=== PATIENT | male | born 1965 | race Caucasian/White ===

== ENCOUNTER 2020-09-13 21:00 | Emergency (ER) | payer BC ==
[2020-09-13] MEDS ORDERED: Oxymetazoline 0.05% Nasal Spray 30 ML Bottle NAS ONE ×2 (21:37→21:43)
[2020-09-13] MEDS ORDERED: Phenylephrine 0.5% Nasal Spray 15 ML Bot NASRT ONE (21:39)
--- NOTE | 2020-09-13 21:40 | EDM.PDOC ---
ED HPI GENERAL MEDICAL PROBLEM - General Chief Complaint: ENT Problem Stated Complaint: NOSE BLEEDING Time Seen by Provider: 09/13/20 21:31 Source of Information: Reports: Patient, Old Records History Limitations: Reports: No Limitations - History of Present Illness INITIAL COMMENTS - FREE TEXT/NARRATIVE: This is a very pleasant 54-year-old male with a past medical history of hy pertension presenting with a nosebleed. He was diagnosed with COVID-19 infection on 09/07/2020. At that time he had a scant amount of bleeding from the right nostril. Over the past 2 to 3 days, this bleeding has increased significantly. He has a history of several prior sinus surgeries but does not have chronic problems with nosebleeds. Denies any history of a bleeding disorder. Denies hemoptysis, hematemesis, hematuria, or bloody stools. He has been trying to apply pressure but has not tried any nasal vasoconstrictor medications before arrival. Past medical history: Reviewed, no additional pertinent history. Surgical history: Reviewed in system, no additional pertinent history. Social history: Reviewed in system, no additional pertinent history. Family history: Reviewed in system, no additional pertinent history. PHYSICAL EXAM Vital signs reviewed. Nursing notes reviewed. Constitutional: Awake, alert, non-distressed. Head: Normocephalic, atraumatic. Eyes: EOMI, conjunctiva normal, no discharge, no scleral icterus. Ears, Nose, Throat: External ears and nose normal, moist oral mucosa. There is a steady stream of bright red blood from the right nostril, I am unable to visualize a bleeding vessel. Dried blood to both nostrils. Cardiovascular: 2+ radial pulse, capillary refill less than 2 seconds. Pulmonary: normal work of breathing, no accessory muscle use. Abdomen/GI: Soft, nontender, nondistended, no guarding or rigidity, no masses. Musculoskeletal: No deformities. Integumentary: Appropriate color for ethnicity, warm, dry, no pallor or jaundice, no rash. Neurologic: Alert, answering questions appropriately, normal speech, no facial droop, moving all extremities well. Psychiatric: Appropriate mood and affect, normal thought process. This patient was seen and evaluated during the 2019 SARS-CoV-2 novel coronavirus pandemic period. Community viral transmission is ongoing at time of this encounter and the emergency department is operating under pandemic response procedures. - Related Data Allergies Allergy/AdvReac Type Severity Reaction Status Date / Time No Known Allergies Allergy Verified 09/13/20 21:16 Home Meds: Home Meds Losartan [Cozaar] 100 mg PO DAILY 06/29/15 [History] Potassium Chloride 20 meq PO DAILY 04/28/18 [History] Amoxicillin/Potassium Clav [Augmentin 875-125 Tablet] 1 each PO BID 3 Days #6 tablet 09/13/20 [Rx] Doxazosin [Doxazosin Mesylate] 2 mg PO DAILY 09/13/20 [History] Past Medical History HEENT History: Reports: Other (See Below) Other HEENT History: wears eyeglasses Cardiovascular History: Reports: Hypertension Respiratory History: Reports: None Gastrointestinal History: Reports: None Genitourinary History: Reports: Renal Calculus Musculoskeletal History: Reports: None Neurological History: Reports: None Psychiatric History: Reports: None Endocrine/Metabolic History: Reports: None Other Endocrine/Metabolic History: working out with doctor for elevated blood sugar Insulin Pump Model and 911 Emergency Dispatcher: None Hematologic History: Reports: None Immunologic History: Reports: None Oncologic (Cancer) History: Reports: None Dermatologic History: Reports: None - Infectious Disease History Infectious Disease History: Reports: None - Past Surgical History Head Surgeries/Procedures: Reports: None HEENT Surgical History: Reports: Adenoidectomy, Naso-Sinus Surgery, Tonsillectomy Cardiovascular Surgical History: Reports: None Male Surgical History: Reports: Kidney Stone Extraction Endocrine Surgical History: Reports: None Musculoskeletal Surgical History: Reports: Other (See Below) Other Musculoskeletal Surgeries/Procedures:: surgery for torn miniscus Social & Family History - Family History Family Medical History: No Pertinent Family History - Tobacco Use Tobacco Use Status *Q: Never Tobacco User - Caffeine Use Caffeine Use: Reports: None - Recreational Drug Use Recreational Drug Use: No ED ROS ENT - Review of Systems Review Of Systems: See Below ED EXAM, ENT - Physical Exam Exam: See Below ED ENT PROCEDURES - Epistaxis Procedure Indication: Epistaxis Recent anticoagulants/antiplatlets: No Uncontrolled HTN: No Recent septal/nasal surgery: No Site of bleeding: Right Nare Clearing of clots: Patient Blew Nose Topical Meds: Phenylephrine Ice pack to area: No Anterior Packing: Inflatable Nasal Tampon Complications: No (Anterior Rhino Rocket soaked with TXA then inserted into right nare, with successful hemostasis.) Course - Vital Signs Text/Narrative:: 54-year-old male with epistaxis. Patient hemodynamically stable, afebrile, well-appearing, looks nontoxic. Differential diagnosis includes but is not limited to: Uncomplicated epistaxis, posterior epistaxis, coagulopathy, digital trauma, etc. 9:42 PM: We will plan to check CBC, INR, metabolic panel, and we will instill nasal phenylephrine and reapply the nasal clamp. I cannot visualize a discrete bleeding blood vessel at this time. 10:12 PM: Cell lines are normal. INR is normal. Metabolic panel shows mild hypokalemia 3.4, mild hypocalcemia at 8.4, otherwise reassuring. Oxymetazoline has been instilled and the patient has a clamp in place. We will reevaluate in a few minutes to see if he is hemostatic. 10:45 PM: Patient continued to have epistaxis after Afrin and clamping so I placed a rapid Rhino balloon soaked in TXA. He seems to be hemostatic now. His blood work is reassuring. We are going to discharge him home and have him return to the ED or follow-up with an ENT clinic in 72 hours for reevaluation and to have the balloon removed. I sent a 3-day course of Augmentin to the pharmacy for prophylaxis. Plan: Patient is stable to discharge home with outpatient ENT clinic follow-up. Strict emergency department return precautions were provided, patient indicated understanding. All questions were answered prior to departure. Discharged in good condition. Last Recorded V/S: Last Vital Signs Temp 35.9 C L 09/13/20 21:10 Pulse 94 09/13/20 21:10 Resp 18 09/13/20 21:10 BP 144/83 H 09/13/20 21:10 Pulse Ox 98 09/13/20 21:10 - Orders/Labs/Meds Labs: Laboratory Tests 09/13/20 09/13/20 09/13/20 Range/Units 21:45 21:45 21:45 WBC 7.49 (4.0-11.0) K/uL RBC 5.34 (4.50-5.90) M/uL Hgb 15.9 (13.0-17.0) g/dL Hct 46.8 (38.0-50.0) % MCV 87.6 (80.0-98.0) fL MCH 29.8 (27.0-32.0) pg MCHC 34.0 (31.0-37.0) g/dL RDW Std Deviation 41.4 (28.0-62.0) fl RDW Coeff of Rachel 13 (11.0-15.0) % Plt Count 189 (150-400) K/uL MPV 10.20 (7.40-12.00) fL Neut % (Auto) 47.0 L (48.0-80.0) % Lymph % (Auto) 37.9 (16.0-40.0) % [place] % (Auto) 12.8 (0.0-15.0) % Eos % (Auto) 1.9 (0.0-7.0) % Baso % (Auto) 0.4 (0.0-1.5) % Neut # (Auto) 3.5 (1.4-5.7) K/uL Lymph # (Auto) 2.8 H (0.6-2.4) K/uL [place] # (Auto) 1.0 H (0.0-0.8) K/uL Eos # (Auto) 0.1 (0.0-0.7) K/uL Baso # (Auto) 0.0 (0.0-0.1) K/uL Nucleated RBC % 0.0 /100WBC Nucleated RBCs # 0 K/uL INR 1.00 Sodium 144 (136-148) mmol/L Potassium 3.4 L (3.5-5.1) mmol/L Chloride 105 (98-107) mmol/L Carbon Dioxide 27.9 (21.0-32.0) mmol/L BUN 14 (7.0-18.0) mg/dL Creatinine 1.0 (0.8-1.3) mg/dL Est Cr Clr Drug Dosing 93.77 mL/min Estimated GFR (MDRD) > 60.0 ml/min Glucose 103 (74-106) mg/dL Calcium 8.4 L (8.5-10.1) mg/dL Meds: Medications Discontinued Medications Generic Name Dose Route Start Last Admin Trade Name Velasquezq PRN Reason Stop Dose Admin Oxymetazoline HCl 2 ml 09/13/20 21:37 09/13/20 21:40 Nasal Decongestant [place] HARPREET 09/13/20 21:38 Not Given ONETIME ONE Oxymetazoline HCl 2 ml 09/13/20 21:43 09/13/20 21:59 Nasal Decongestant [place] HARPREET 09/13/20 21:44 Not Given ONETIME ONE Oxymetazoline HCl 3 ml 09/13/20 21:56 09/13/20 22:07 Afrin Original 0.05% Nasal [place] HARPREET 09/13/20 21:57 Not Given ONETIME ONE Oxymetazoline HCl 15 ml 09/13/20 21:57 09/13/20 21:59 Afrin Original 0.05% Nasal [place] HARPREET 09/13/20 21:58 3 spray ONETIME ONE Administration Phenylephrine HCl 2 ml 09/13/20 21:39 09/13/20 21:58 Samy-Synephrine 0.5% Regular Nasal [place] NASRT 09/13/20 21:40 Not Given ONETIME ONE Tranexamic Acid 1,000 mg 09/13/20 22:28 09/13/20 22:34 Cyklokapron TOP 09/13/20 22:38 1,000 mg ONETIME ONE Administration Departure - Departure Time of Disposition: 22:46 Disposition: Home, Self-Care 01 Condition: Good Clinical Impression: Epistaxis - Discharge Information *PRESCRIPTION DRUG MONITORING PROGRAM REVIEWED*: Not Applicable *COPY OF PRESCRIPTION DRUG MONITORING REPORT IN PATIENT KOFI: Not Applicable Prescriptions: Amoxicillin/Potassium Clav [Augmentin 875-125 Tablet] 1 each PO BID 3 Days #6 tablet Instructions: Nosebleed, Adult Forms: ED Department Discharge Additional Instructions: Please follow-up with your ENT doctor or the ENT clinic at [facility] in [place] in the next few days for reevaluation. I recommend that you follow-up with either an ENT clinic or the emergency department in 72 hours to have your nosebleed reevaluated and to have the balloon removed. I prescribed some antibiotics to the pharmacy, finish these as directed. You may gently spray some saline to help keep the balloon in your nose moist once or twice daily but do not aggressively irrigate the balloon as this may cause bleeding to resume. Please return the emergency department immediately if your symptoms worsen or if you feel worse. Thank you for choosing the [facility] emergency department in [place] for your medical needs today. It was a pleasure caring for you. The following information is given to patients seen in the emergency department who are being discharged. This information is to outline your options for follow-up care. We provide all patients seen in our emergency department with a follow-up referral. The need for follow-up, as well as the timing and circumstances, are variable depending upon the specifics of your emergency department visit. If you don't have a primary care physician on staff, we will provide you with a referral. We always advise you to contact your personal physician following an emergency department visit to inform them of the circumstance of the visit and for follow-up with them and/or the need for any referrals to a consulting specialist. The emergency department will also refer you to a specialist when appropriate. This referral assures that you have the opportunity for follow-up care with a specialist. All of these measure are taken in an effort to provide you with optimal care, which includes your follow-up. Under all circumstances we always encourage you to contact your private physician who remains a resource for coordinating your care. When calling for follow-up care, please make the office aware that this follow-up is from your recent emergency room visit. If for any reason you are refused follow-up, please contact the [facility] Emergency Department at and asked to speak to the emergency department charge nurse. If you do not have a primary care physician that is caring for you, you can contact these clinics below to set up an appointment to establish care: Whitley Andres [facility] - Primary Care [address] [place] [id number] [address] Sepsis Event Note (ED) - Evaluation Sepsis Screening Result: No Definite Risk - Focused Exam Vital Signs: Vital Signs Temp Pulse Resp BP Pulse Ox 09/13/20 21:10 35.9 C L 94 18 144/83 H 98
[2020-09-13] MEDS ORDERED: Oxymetazoline 0.05% Nasal Spray 15 ML Bottle NAS ONE ×2 (21:56→21:57)
[2020-09-13 22:08] LABS: BLOOD UREA NITROGEN,BUN 14 mg/dL (7.0-18.0); CARBON DIOXIDE,CO2 27.9 mmol/L (21.0-32.0); CHLORIDE,CL 105 mmol/L (98-107); GLUCOSE RANDOM 103 mg/dL (74-106); POTASSIUM,K 3.4 mmol/L (3.5-5.1); SODIUM,NA 144 mmol/L (136-148)
[2020-09-13 23:02] VITALS: BP 138/89; PULSE 81
== END 2020-09-13 22:55 | disposition home or self-care (01) ==
LOC: MW.ED 21:00
DX: R04.0 Epistaxis (principal); I10 Essential (primary) hypertension; Z79.899 Other long term (current) drug therapy
CPT/HCPCS: 30901; 30903; 36415; 80048; 85025; 85610; 99282; 99283-25

== ENCOUNTER 2020-10-18 17:59 | Emergency (ER) | payer BC ==
--- NOTE | 2020-10-18 18:30 | EDM.PDOC ---
ED HPI GENERAL MEDICAL PROBLEM - General Chief Complaint: Lower Extremity Injury/Pain Stated Complaint: TOE INJURT RT FOOT Time Seen by Provider: 10/18/20 18:02 Source of Information: Reports: Patient History Limitations: Reports: No Limitations - History of Present Illness INITIAL COMMENTS - FREE TEXT/NARRATIVE: HISTORY AND PHYSICAL: History of present illness: Patient is a 54-year-old male who presents to the emergency room with complaints of bleeding at the base of his left third toenail. He states he was running up the stairs and attempted to skip a step when his foot hit the lip of the step. He noticed some bleeding at the distal aspect of the left third toe which appears to be coming from the base of the nail. The nail remains intact and there is no open skin or lacerations. He denies any other extremity involvement. Offers no systemic complaints. Tetanus is up-to-date. Review of systems: As per history of present illness and below otherwise all systems reviewed and negative. Past medical history: As per history of present illness and as reviewed below otherwise noncontributory. Surgical history: As per history of present illness and as reviewed below otherwise noncontributory. Social history: See social history for further information Family history: As per history of present illness and as reviewed below otherwise noncontributory. Physical exam: General: Well developed and well nourished. Alert and orientated x 3. Nontoxic in appearance and in no acute distress. Vital signs are stable and have been reviewed by me. Nursing notes were reviewed. HEENT: Atraumatic, normocephalic, pupils equal and reactive bilaterally, negative for conjunctival pallor or scleral icterus, mucous membranes moist, trachea midline. No drooling or trismus noted. No meningeal signs. No hot potato voice noted. Lungs: Clear to auscultation bilaterally. No wheezes, rales, or rhonchi. Chest nontender. Normal work of breathing, no accessory muscles used. Heart: S1S2, regular rate and rhythm without overt murmur, gallops, or rubs. No JVD. No peripheral edema Abdomen: Soft, nondistended, nontender. Normoactive bowel sounds. Negative for masses or costovertebral tenderness. Skin: There is a small amount of blood oozing from the cuticle/toenail insertion site. The toenail remains intact and stable. Remaining skin is otherwise intact, warm, dry. No lesions or rashes noted. Hematologic: No petechiae or purpra. Mucosa appropriate color and normal nail bed color and refill. Extremities: Pain to the left distal third toe. He moves all extremities per self without difficulty or deficits, negative for cords or calf pain. Neurovascular unremarkable. Neuro: Awake, alert, oriented. Cranial nerves II through XII unremarkable. Cerebellum unremarkable. Motor and sensory unremarkable throughout. Exam nonfocal. Psychiatric: Mood and affect are appropriate. Normal thought process. Answering questions appropriately. Notes: *This patient was seen and evaluated during the 2019 SARS-CoV-2 novel coronavirus pandemic period. Community viral transmission is ongoing at time of this encounter and the emergency department is operating under pandemic response procedures. The toe was cleansed with chlorhexidine and wound wash. There is nothing that is requiring sutures. X-ray shows no evidence for acute fracture or dislocation. The joint spaces are preserved. Soft tissues appear within normal. Bacitracin nonstick dressing was applied. Patient reports he has crutches and pain medication at home and does not need any dispensed from the emergency room. I have talked with the patient about today's findings, in addition to providing specific details for plan of care. Reassessment at the time of disposition demonstrates that the patient is in no acute distress. The patient is stable for discharge, counseling was provided and we discussed in great detail signs and symptoms that would prompt them to return to the Emergency Department. M edication, follow up and supportive care measures were reviewed and discussed. Voices understanding and is agreeable to plan of care. Denies any further questions or concerns at this time. Diagnostics: Foot X-ray Therapeutics: Wound care, bacitracin Prescription: None Impression: Nailbed injury Plan: 1. X-ray shows no evidence of fracture. Rest, ice and elevate extremity as able. Be none weightbearing as able. 2. You can alternate Tylenol and ibuprofen as needed for pain and fever management. 3. We encourage you to follow up with your primary care provider or Demographic Analyst in the next few days for re-evaluation and further care/management. 4. If your symptoms should worsen, new symptoms develop or any of the signs and symptoms we discussed should arise please return to the emergency room or call 911 (if needed). Definitive disposition and diagnosis as appropriate pending reevaluation and review of above. left 4th toe Pain Score (Numeric/FACES): 2 - Related Data Allergies Allergy/AdvReac Type Severity Reaction Status Date / Time No Known Allergies Allergy Verified 09/13/20 21:16 Home Meds: Home Meds Losartan [Cozaar] 100 mg PO DAILY 06/29/15 [History] Potassium Chloride 20 meq PO DAILY 04/28/18 [History] Doxazosin [Doxazosin Mesylate] 2 mg PO DAILY 09/13/20 [History] Past Medical History HEENT History: Reports: Other (See Below) Other HEENT History: wears eyeglasses Cardiovascular History: Reports: Hypertension Respiratory History: Reports: None Gastrointestinal History: Reports: None Genitourinary History: Reports: Renal Calculus Musculoskeletal History: Reports: None Neurological History: Reports: None Psychiatric History: Reports: None Endocrine/Metabolic History: Reports: None Other Endocrine/Metabolic History: working out with doctor for elevated blood sugar Insulin Pump Model and Financing Analyst: None Hematologic History: Reports: None Immunologic History: Reports: None Oncologic (Cancer) History: Reports: None Dermatologic History: Reports: None - Infectious Disease History Infectious Disease History: Reports: Novel Coronavirus - Past Surgical History Head Surgeries/Procedures: Reports: None HEENT Surgical History: Reports: Adenoidectomy, Naso-Sinus Surgery, Tonsillectomy Cardiovascular Surgical History: Reports: None Male Surgical History: Reports: Kidney Stone Extraction Endocrine Surgical History: Reports: None Musculoskeletal Surgical History: Reports: Other (See Below) Other Musculoskeletal Surgeries/Procedures:: surgery for torn miniscus Social & Family History - Family History Family Medical History: No Pertinent Family History - Tobacco Use Tobacco Use Status *Q: Never Tobacco User - Caffeine Use Caffeine Use: Reports: None - Recreational Drug Use Recreational Drug Use: No Review of Systems - Review of Systems Review Of Systems: Comprehensive ROS is negative, except as noted in HPI. ED EXAM, GENERAL - Physical Exam Exam: See Below (See dictation) Course - Vital Signs Last Recorded V/S: Last Vital Signs Temp 97.6 F 10/18/20 18:14 Pulse 91 10/18/20 18:14 Resp 16 10/18/20 18:14 BP 100/61 10/18/20 18:30 Pulse Ox 96 10/18/20 18:14 - Orders/Labs/Meds Orders: Active Orders 24 hr Category Date Time Status Communication Order [RC] STAT Care 10/18/20 18:30 Active Departure - Departure Time of Disposition: 18:49 Disposition: Home, Self-Care 01 Clinical Impression: Nailbed injury - Discharge Information Instructions: Nail Bed Injury, [id number] Referrals: Kevyn Masters MD [Primary Care Provider] - Forms: ED Department Discharge Additional Instructions: The following information is given to patients seen in the emergency department who are being discharged to home. This information is to outline your options for follow-up care. We provide all patients seen in our emergency department with a follow-up referral. The need for follow-up, as well as the timing and circumstances, are variable depending upon the specifics of your emergency department visit. If you don't have a primary care physician on staff, we will provide you with a referral. We always advise you to contact your personal physician following an emergency department visit to inform them of the circumstance of the visit and for follow-up with them and/or the need for any referrals to a consulting specialist. The emergency department will also refer you to a specialist when appropriate. This referral assures that you have the opportunity for follow-up care with a specialist. All of these measure are taken in an effort to provide you with optimal care, which includes your follow-up. Under all circumstances we always encourage you to contact your private physician who remains a resource for coordinating your care. When calling for follow-up care, please make the office aware that this follow-up is from your recent emergency room visit. If for any reason you are refused follow-up, please contact the [facility] Emergency Department at and asked to speak to the emergency department charge nurse. [facility] Primary [facility] [address] [place] [id number] [address] [address] Thank you for choosing the [facility] emergency department in [place] for your medical needs today. It was a pleasure caring for you. Today you were seen in the emergency department for nailbed injury. 1. X-ray shows no evidence of fracture. Rest, ice and elevate extremity as able. Be none weightbearing as able. 2. You can alternate Tylenol and ibuprofen as needed for pain and fever management. 3. We encourage you to follow up with your primary care provider or Demographic Analyst in the next few days for re-evaluation and further care/management. 4. If your symptoms should worsen, new symptoms develop or any of the signs and symptoms we discussed should arise please return to the emergency room or call 911 (if needed). Sepsis Event Note (ED) - Evaluation Sepsis Screening Result: No Definite Risk - Focused Exam Vital Signs: Vital Signs Temp Pulse Resp BP Pulse Ox 10/18/20 18:30 100/61 10/18/20 18:14 97.6 F 91 16 161/102 H 96 - My Orders Last 24 Hours: My Active Orders 10/18/20 18:30 Communication Order [RC] STAT - Assessment/Plan Last 24 Hours: My Active Orders 10/18/20 18:30 Communication Order [RC] STAT
--- NOTE | 2020-10-18 18:43 | CR ---
HISTORY: Patient with left foot pain and injury. COMPARISON: None. FINDINGS: Three views of the left foot. No evidence for acute fracture or dislocation. The joint spaces are preserved. Soft tissues appear within normal. Dictated by Nati Wright MD @ Oct 18 2020 6:41PM Signed by Dr. Nati Wright @ Oct 18 2020 6:42PM
[2020-10-18 19:26] VITALS: BP 138/95; PULSE 87
== END 2020-10-18 19:15 | disposition home or self-care (01) ==
LOC: MW.ED 17:59
DX: S99.922A Unspecified injury of left foot, initial encounter (principal); I10 Essential (primary) hypertension; Z86.16 Personal history of COVID-19; Z79.899 Other long term (current) drug therapy; W22.8XXA Striking against or struck by other objects, initial encounter
CPT/HCPCS: 73630-26-LT; 73630-LT; 99282; 99283

== ENCOUNTER 2025-07-29 21:57 | Emergency (ER) | payer BC ==
[2025-07-29 22:30] LABS: GLUCOSE,URINE NEGATIVE (NEGATIVE); OCCULT BLOOD,URINE LARGE (NEGATIVE)
[2025-07-29 22:37] LABS: APPEARANCE,URINE SLT CLOUDY; EPITHELIAL CELLS,URINE OCCASIONAL (NONE-FEW)
[2025-07-29 22:41] LABS: BASOPHILS ABSOLUTE AUTO 0.13 K/uL (0.00-0.20); BASOPHILS PERCENT AUTO 1.2 % (0.0-1.0); EOSINOPHILS ABSOLUTE AUTO 0.43 K/uL (0.00-0.45); EOSINOPHILS PERCENT AUTO 4.0 % (0.0-6.0); IMMATURE GRAN ABSOLUTE AUTO 0.08 K/uL (0.00-0.05); IMMATURE GRAN PERCENT AUTO 0.7 % (0.0-0.4); LYMPHOCYTES ABSOLUTE AUTO 3.57 K/uL (1.00-4.80); LYMPHOCYTES PERCENT AUTO 33.3 % (24.0-44.0); MEAN PLATELET VOLUME 9.6 fL (9.4-12.4); MONOCYTES ABSOLUTE AUTO 1.10 K/uL (0.00-0.80); MONOCYTES PERCENT AUTO 10.3 % (0.0-8.0); NEUTROPHILS ABSOLUTE AUTO 5.40 K/uL (1.80-7.70); NEUTROPHILS PERCENT AUTO 50.5 % (41.0-71.0); NRBC ABSOLUTE 0.00 K/uL (0.00-0.02); NRBC PERCENT 0.0 /100WBC (0.0-0.2); PLATELET COUNT,PLT 291 K/uL (150-400); RED BLOOD CELL COUNT 5.45 M/uL (4.52-5.90); WHITE BLOOD CELL COUNT,WBC 10.71 K/uL (3.9-11.3)
[2025-07-29 23:24] LABS: A/G RATIO 0.8 (0.9-1.6); ALANINE AMINOTRANSFERASE,ALT 27 IU/L (14-63); ASPARTATE AMNIOTRANSFERASE,AST 18 IU/L (15-37); BILIRUBIN TOTAL 0.3 mg/dL (0.2-1.0); BLOOD UREA NITROGEN,BUN 20 mg/dL (7.0-18.0); CARBON DIOXIDE,CO2 30.0 mmol/L (21.0-32.0); CHLORIDE,CL 105 mmol/L (98-107); CREATININE 1.3 mg/dL (0.8-1.3); ESTIMATED GFR 64 mL/min (>60); GLUCOSE RANDOM 148 mg/dL (74-106); POTASSIUM,K 3.4 mmol/L (3.5-5.1); PROTEIN TOTAL,TP 7.4 g/dL (6.4-8.2); SODIUM,NA 143 mmol/L (136-148)
[2025-07-29] MEDS: Ondansetron 4 MG/2 ML SDV IVPUSH ONE (23:46)
[2025-07-29] MEDS: Ketorolac 30 MG/ML SDV IVPUSH ONE (23:47)
[2025-07-30 00:59] VITALS: BP 148/86; PULSE 58
== END 2025-07-30 01:50 | disposition home or self-care (01) ==
LOC: MW.ED 21:57
DX: N20.0 Calculus of kidney (principal); I10 Essential (primary) hypertension; Z79.899 Other long term (current) drug therapy; Z86.16 Personal history of COVID-19
CPT/HCPCS: 36415; 74176; 80053; 81001; 85025; 96361; 96374; 96375; 99284; J1885; J2270; J2405; J7030